=== PATIENT | female | born 1950 | race Caucasian/White ===

== ENCOUNTER 2018-08-13 06:47 | Inpatient (IN) | payer BC, MEDICARE | END 2018-08-15 16:56 | disposition home or self-care (01) | LOC: PAS IN 06:47 → ORTHO 4S 13:55 | DX: M24.571 Contracture, right ankle (principal); M21.42 Flat foot [pes planus] (acquired), left foot; S93.692D Other sprain of left foot, subsequent encounter; Q66.6 Other congenital valgus deformities of feet ==